=== PATIENT | female | born 1970 | race Caucasian/White ===

== ENCOUNTER 2019-07-05 01:52 | Emergency (ER) | payer SELFPAY ==
[2019-07-05 02:16] VITALS: BP 159/96
== END 2019-07-05 03:42 | disposition left against medical advice (07) ==
LOC: ER 01:52
DX: Z53.21 Procedure and treatment not carried out due to patient leaving prior to being seen by health care provider (principal)

== ENCOUNTER 2019-07-05 14:54 | Emergency (ER) | payer OTHER ==
[2019-07-05] MEDS ORDERED: KETOROLAC TROMETHAMINE INJ/PF 30 MG/1 ML SDV IM ONE (15:30)
[2019-07-05] MEDS ORDERED: DIPH/PERTUSS(ACELL)/TETANUS VAC/PF 0.5 ML SYR (>=10YO) IM ONE (15:31)
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
[2019-07-05] MEDS ORDERED: LIDOCAINE 2% JELLY 30 ML TUBE TOP ONE (17:08)
[2019-07-05] MEDS ORDERED: LIDOCAINE 1%/EPINEPHRINE INJ 20 ML VIAL INJ ONE (17:12)
[2019-07-05] MEDS ORDERED: CEPHALEXIN 500 MG CAPSULE PO ONE (17:58)
[2019-07-05] MEDS ORDERED: HYDROCODONE/ACETAMINOPHEN 5-325 MG TABLET PO ONE (17:59)
[2019-07-05] MEDS ORDERED: HYDROCODONE/ACETAMINOPHEN 5-325 MG (6 TAB/ER DISP) PO PRN (18:33)
[2019-07-05] MEDS ORDERED: TAMSULOSIN HCL 0.4 MG CAP.SR.24H PO ONE (18:41)
[2019-07-05 18:47] VITALS: BP 131/89
== END 2019-07-05 18:50 | disposition home or self-care (01) ==
LOC: ER 14:54
DX: S81.822A Laceration with foreign body, left lower leg, initial encounter (principal); S51.819A Laceration without foreign body of unspecified forearm, initial encounter; S61.419A Laceration without foreign body of unspecified hand, initial encounter; S71.119A Laceration without foreign body, unspecified thigh, initial encounter; S81.019A Laceration without foreign body, unspecified knee, initial encounter; S91.019A Laceration without foreign body, unspecified ankle, initial encounter; S50.00XA Contusion of unspecified elbow, initial encounter; S70.00XA Contusion of unspecified hip, initial encounter; S80.819A Abrasion, unspecified lower leg, initial encounter; M25.561 Pain in right knee; M25.522 Pain in left elbow; R07.1 Chest pain on breathing; R07.81 Pleurodynia; V49.9XXA Car occupant (driver) (passenger) injured in unspecified traffic accident, initial encounter; S89.92XA Unspecified injury of left lower leg, initial encounter; S59.902A Unspecified injury of left elbow, initial encounter; J45.909 Unspecified asthma, uncomplicated; F17.210 Nicotine dependence, cigarettes, uncomplicated
CPT/HCPCS: 73080; 73552; 73140; 73630; 73564; 71101; 73590; 90715; 10120; J3490; J1885; 90471; 96372; 99283; L1830